=== PATIENT | male | born 1950 | race Caucasian/White ===

== ENCOUNTER 2016-06-03 13:05 | Outpatient (CLI) | payer OTHER ==
[~2016-06-03 13:05] MED LIST: HYDROCHLOROTHIA25 MG PO; HYDROCHLOROTHIA50 MG PO; VENTOLIN HFA IN; ZESTRIL5 MG PO
== END 2016-06-03 23:00 ==
LOC: RT SRH 13:05
DX: R06.02 Shortness of breath (principal); R91.8 Other nonspecific abnormal finding of lung field

== ENCOUNTER 2016-09-24 09:21 | Emergency (ER) | payer OTHER ==
--- NOTE | 2016-09-24 10:39 | DIAGNOSTIC IMAGING REPORT ---
PROCEDURE: XR HIP 2VW W W/O AP PELVIS-RT INDICATION: PAIN IN JOINT TECHNIQUE: AP view of the pelvis and hips with lateral view of the right hip. COMPARISON: None. FINDINGS: RIGHT HIP: Marginal spurring of the acetabulum and mild joint space narrowing. No fracture dislocation. PELVIS: No suspicious osseous lesion. Mild degenerative changes of the left hip joint. Soft tissues are unremarkable. IMPRESSION: 1. Moderate right and mild left hip degenerative changes
--- NOTE | 2016-09-24 10:48 | ED ORDER SUMMARY ---
..... Patient: ADELINA JEREZ OrderSheet [facility] VisitID: [id number] [address] [place] [address] 65y, M Registration Date/Time: 09/24/2016 ORDER SHEET Weight: 83.9 kg (stated) Allergies: Antidepressant, Iodine GENERAL ORDERS: Hip 2V Right w AP Pelvis Urgent (09:53 09/24/2016 Jesusita Diop) (Ack 9:55 Patricio) (10:44 Lashay R.N.) MEDICATION ORDERS: Toradol IM 60 mg (NOW) (09:53 09/24/2016 Jseusita Diop) (Ack 9:58 Ruthy Sullivan) (10:46 Lashay Keys.N.) IV FLUIDS: ORDER SHEET NOTES: [Electronically signed by Josiah Wells R.N. (13:13 09/24/2016)] [Electronically signed by Amish Mora Dr. (08:38 09/25/2016)] [Electronically locked/signed by Josiah Wells R.N. (13:13 09/24/2016)]
--- NOTE | 2016-09-24 10:48 | ED CLINICAL REPORT ---
Clinical Report - Physicians/Mid Levels [facility] [address] [place] [address] 09/24/2016 9:24 [id number] Time Seen: 09:44; initial patient contact. Arrived- By private vehicle. Historian- patient. HISTORY OF PRESENT ILLNESS Chief Complaint: RIGHT HIP INJURY. The injury occurred about 5 days ago. Occurred at home. Patient did not fall. (Pt states his hip occasionally "pops out". No fall.). The patient complains of moderate pain. No blow to the head or neck pain. REVIEW OF SYSTEMS No numbness, weakness, bladder dysfunction or back pain. He has had joint pain, and complains of pain on weight bearing. All systems otherwise negative, except as recorded above. PAST HISTORY Primary (Essential) Thrombocytosis. TIA - Transient Ischemic Attack. Hives. Alcohol Intoxication. Cellulitis. Hypertension. ADDITIONAL SURGERIES: Amputation. SOCIAL HISTORY Current every day smoker. Occasional alcohol use. No drug use. ADDITIONAL NOTES The nursing notes have been reviewed. PHYSICAL EXAM Vital Signs: 09/24/2016 09:32 BP: 154/104. HR: 87. RR: 20. O2 saturation: 99%. Temp: 98.0 F. Have been reviewed. Hypertensive. Heart rate normal. Respiratory rate normal. Temperature normal. Oxygen saturation normal. Appearance: Alert. Oriented X3. No acute distress. Head: No swelling of head. CVS: Heart sounds normal. Pulses normal. Respiratory: No respiratory distress. Breath sounds normal. Abdomen: Soft and nontender. Bowel sounds normal. No organomegaly. No mass. Back: No tenderness. ROM normal. Skin: Skin intact. Skin warm and dry. Extremities: Right hip: mild tenderness located in the anterior and lateral aspect of the hip. Limited ROM secondary to pain (diminished abduction and external and internal rotation). Neurovascular intact distally. No erythema. No decreased adduction, flexion or extension. The right leg is not shortened, externally rotated, internally rotated, flexed or adducted. The right leg is not abducted. Neuro: Oriented X 3. No motor deficit. No sensory deficit. LABS, X-RAYS, AND EKG Rt Hip X-ray: No fracture. Normal alignment. No bony lesion. Mild degenerative joint disease. Views: 2 view hip series. Technique: good. The X-rays were independently viewed by me and interpreted contemporaneously by me. Prior films were not available for comparison. Interpretation time: 10:48. PROGRESS AND PROCEDURES Course of Care: Toradol 60mg IM given. Physical exam findings are improved. Symptoms better. Disposition: Discharged home in good and improved condition. Condition: good. CLINICAL IMPRESSION Mild chronic primary osteoarthritis involving the right hip. INSTRUCTIONS Your Current Medications: CONTINUE TAKING THE FOLLOWING MEDICATIONS: Atorvastatin Calcium Oral : 80 mg. Hydrochlorothiazide Oral : 50 mg. Hydroxyurea 500mg x2 daily*. Lisinopril Oral : 20 mg daily. Ventolin HFA Inhalation : Aerosol Solution 108 (90 Base) mcg/act, 90MCG. Prescription Medications: Diclofenac 50 mg tablets: take 1 tablet orally every 8 hours as needed for pain or stiffness. Dispense thirty (30). No refill. Follow-up: Blood pressure screening was not performed during this visit because the patient has an active diagnosis of hypertension. Follow-up with: [facility], , [address], [facility], [address] Follow up in about two days. Call for an appointment. (Electronically signed by Amish Mora Dr. 09/25/2016 8:38)
--- NOTE | 2016-09-24 10:48 | ED NURSING NOTES ---
Clinical Report - Nurses [facility] [address] [place] [address] 09/24/2016 9:24 Patient: ADELINA JEREZ TRIAGE Triage time 09:32. Acuity: LEVEL 4. Chief Complaint: INJURY TO THE RIGHT HIP. Alert. No acute distress. ( I was just sleeping and my hip "popped out". Pt. states this has happened to him in the past a few times and it usually will resolve but it has been 5 days now and the pain is not going away.). SEPSIS SCREEN: Sepsis Screen. Negative (no infection suspected/documented). YAMILA COMA SCORE: Yamila Coma Scale: 15- eyes open spontaneously (4); best verbal response- oriented x 4 (5); best motor response- obeys commands (6). --09:38 Sienna Blanco R.N. 09:32 09/24/16. BP: 154/104. HR: 87. RR: 20. O2 saturation: 99%. Temp: 98.0 F. Pain level now 01/15. --09:38 Sienna Blanco R.N. Weight: 83.9 kg stated. Height/Length: 75 inches Per Patient. BMI: 23.1. --09:33 Sienna Blanco R.N. Medications Hydroxyurea 500mg x2 daily. --09:35 Sienna Blanco R.N. Ventolin HFA Inhalation (Aerosol Solution 108 (90 Base) mcg/act) 90MCG . --09:35 Sienna Blanco R.N. Lisinopril Oral 20 mg, daily. --09:36 Sienna Blanco R.N. Atorvastatin Calcium Oral 80 mg. --09:36 Sienna Blanco R.N. Hydrochlorothiazide Oral 50 mg. --09:36 Sienna Blanco R.N. Allergies Antidepressant.(hives) Iodine.(hives) --09:34 Sienna Blanco R.N. History Arrived by private vehicle. Historian: patient. Unaccompanied (pt dropped off by friend). Primary physician (Radha). This occurred (5 days ago). Treatment LENDING CONSULTANT: None. PAST MEDICAL HX: Immunizations: up-to-date. SOCIAL HX: Light tobacco smoker (cigarette)- less than 1/2 a pack per day. Occasional alcohol use. ("whenever I feel like it."). ABUSE ASSESSMENT: No report of abuse. NUTRITIONAL RISK ASSESSMENT: The nutritional risk assessment revealed no deficiencies. FUNCTIONAL ASSESSMENT: Functional assessment: no impairments noted. LEARNING NEEDS ASSESSMENT: The learning needs assessment revealed no barriers. --09:38 Sienna Blanco R.N. PROBLEMS: Primary (Essential) Thrombocytosis. TIA - Transient Ischemic Attack. Hives. Alcohol Intoxication. Cellulitis. Hypertension. --09:36 Sienna Blanco R.N. The following entry was modified by Sienna Blanco R.N., 09:42 Reason - other <<STRICKEN ENTRY-- DVT - Deep Venous Thrombosis. --09:36 Sienna Blanco R.N. --END STRIKE>>. ADDITIONAL SURGERIES: Amputation. --09:37 Sienna Blanco R.N. Interventions ID band on patient. Transported via wheelchair. --09:38 Sienna Blanco R.N. PHYSICAL ASSESSMENT To room via wheelchair. GENERAL / NEURO / PSYCH: Alert. Appears in no acute distress. EXTREMITIES: Pain with weight bearing. SKIN: Skin is warm and dry. --09:38 Sienna Blanco R.N. NURSING PROGRESS NOTES gambling monitor, pulse oximeter and NIBP monitor placed on patient; cardiac monitor technician- Lead II; monitor alarms on. Two patient identifiers checked. Call light placed in reach. Side rails up x 2. Bed placed in lowest position. Brakes of bed on. Patient ready for evaluation- chart flagged. --09:39 Sienna Blanco R.N. Patient transported to radiology by stretcher with tech. --10:06 Josiah Wells R.N. 10:46 09/24/2016 Toradol (Ketorolac Tromethamine) IM 60 mg given. Given in the left gluteus augusta. Allergies verified and confirmed 5 rights. --10:46 Sienna Blanco R.N. 11:00 09/24/2016 Toradol IM Response: no adverse reaction. --13:13 Josiah Wells R.N. DISPOSITION / DISCHARGE 11:00. Departure time: 1100. Condition at departure: stable. The goals identified in the patient's plan of care were met. No learning barriers present. Discharge instructions provided and reviewed with the patient. Reviewed medication(s) side effects, precautions, dosing and course information. Prescription(s) given to the patient. Patient verbalized understanding. Written instructions provided in Bots[place]. The patient was discharged by the physician. He was discharged home and accompanied by family. He left the Emergency Department in a wheelchair and via private vehicle. Family member driving. YAMILA COMA SCORE: Yamila Coma Scale: 15- eyes open spontaneously (4); best verbal response- oriented x 4 (5); best motor response- obeys commands (6). --13:13 Josiah Wells R.N. 11:00 09/24/16. BP: 155/81 (regular adult cuff) taken on the left arm, via an automated monitor, while lying. HR: 86 (normal rate). RR: 16 (regular, unlabored and normal). O2 saturation: 100% on room air. Temp: 97.9 F (oral). Pain level now: 11/14. --13:13 Josiah Wells R.N. Locked/Released at 09/24/2016 13:13 by Josiah Wells R.N.
--- NOTE | 2016-09-24 10:48 | ED ORDER SUMMARY ---
..... Patient: ADELINA JEREZ OrderSheet [facility] VisitID: [id number] [address] [place] [address] 65y, M Registration Date/Time: 09/24/2016 ORDER SHEET Weight: 83.9 kg (stated) Allergies: Antidepressant, Iodine GENERAL ORDERS: Hip 2V Right w AP Pelvis Urgent (09:53 09/24/2016 Jesusita Diop) (Ack 9:55 Patricio) (10:44 Lashay R.N.) MEDICATION ORDERS: Toradol IM 60 mg (NOW) (09:53 09/24/2016 Jesusita Diop) (Ack 9:58 Ruthy Sullivan) (10:46 Lashay Keys.N.) IV FLUIDS: ORDER SHEET NOTES: [Electronically signed by Josiah Wells R.N. (13:13 09/24/2016)] [Electronically signed by Amish Mora Dr. (08:38 09/25/2016)] [Electronically locked/signed by Josiah Wells R.N. (13:13 09/24/2016)]
--- NOTE | 2016-09-24 10:48 | ED CLINICAL REPORT ---
Clinical Report - Physicians/Mid Levels [facility] [address] [place] [address] 09/24/2016 9:24 [id number] Time Seen: 09:44; initial patient contact. Arrived- By private vehicle. Historian- patient. HISTORY OF PRESENT ILLNESS Chief Complaint: RIGHT HIP INJURY. The injury occurred about 5 days ago. Occurred at home. Patient did not fall. (Pt states his hip occasionally "pops out". No fall.). The patient complains of moderate pain. No blow to the head or neck pain. REVIEW OF SYSTEMS No numbness, weakness, bladder dysfunction or back pain. He has had joint pain, and complains of pain on weight bearing. All systems otherwise negative, except as recorded above. PAST HISTORY Primary (Essential) Thrombocytosis. TIA - Transient Ischemic Attack. Hives. Alcohol Intoxication. Cellulitis. Hypertension. ADDITIONAL SURGERIES: Amputation. SOCIAL HISTORY Current every day smoker. Occasional alcohol use. No drug use. ADDITIONAL NOTES The nursing notes have been reviewed. PHYSICAL EXAM Vital Signs: 09/24/2016 09:32 BP: 154/104. HR: 87. RR: 20. O2 saturation: 99%. Temp: 98.0 F. Have been reviewed. Hypertensive. Heart rate normal. Respiratory rate normal. Temperature normal. Oxygen saturation normal. Appearance: Alert. Oriented X3. No acute distress. Head: No swelling of head. CVS: Heart sounds normal. Pulses normal. Respiratory: No respiratory distress. Breath sounds normal. Abdomen: Soft and nontender. Bowel sounds normal. No organomegaly. No mass. Back: No tenderness. ROM normal. Skin: Skin intact. Skin warm and dry. Extremities: Right hip: mild tenderness located in the anterior and lateral aspect of the hip. Limited ROM secondary to pain (diminished abduction and external and internal rotation). Neurovascular intact distally. No erythema. No decreased adduction, flexion or extension. The right leg is not shortened, externally rotated, internally rotated, flexed or adducted. The right leg is not abducted. Neuro: Oriented X 3. No motor deficit. No sensory deficit. LABS, X-RAYS, AND EKG Rt Hip X-ray: No fracture. Normal alignment. No bony lesion. Mild degenerative joint disease. Views: 2 view hip series. Technique: good. The X-rays were independently viewed by me and interpreted contemporaneously by me. Prior films were not available for comparison. Interpretation time: 10:48. PROGRESS AND PROCEDURES Course of Care: Toradol 60mg IM given. Physical exam findings are improved. Symptoms better. Disposition: Discharged home in good and improved condition. Condition: good. CLINICAL IMPRESSION Mild chronic primary osteoarthritis involving the right hip. INSTRUCTIONS Your Current Medications: CONTINUE TAKING THE FOLLOWING MEDICATIONS: Atorvastatin Calcium Oral : 80 mg. Hydrochlorothiazide Oral : 50 mg. Hydroxyurea 500mg x2 daily*. Lisinopril Oral : 20 mg daily. Ventolin HFA Inhalation : Aerosol Solution 108 (90 Base) mcg/act, 90MCG. Prescription Medications: Diclofenac 50 mg tablets: take 1 tablet orally every 8 hours as needed for pain or stiffness. Dispense thirty (30). No refill. Follow-up: Blood pressure screening was not performed during this visit because the patient has an active diagnosis of hypertension. Follow-up with: [facility], , [address], [facility], [address] Follow up in about two days. Call for an appointment. (Electronically signed by Amish Mora Dr. 09/25/2016 8:38)
--- NOTE | 2016-09-24 10:48 | ED NURSING NOTES ---
Clinical Report - Nurses [facility] [address] [place] [address] 09/24/2016 9:24 Patient: ADELINA JEREZ TRIAGE Triage time 09:32. Acuity: LEVEL 4. Chief Complaint: INJURY TO THE RIGHT HIP. Alert. No acute distress. ( I was just sleeping and my hip "popped out". Pt. states this has happened to him in the past a few times and it usually will resolve but it has been 5 days now and the pain is not going away.). SEPSIS SCREEN: Sepsis Screen. Negative (no infection suspected/documented). YAMILA COMA SCORE: Yamila Coma Scale: 15- eyes open spontaneously (4); best verbal response- oriented x 4 (5); best motor response- obeys commands (6). --09:38 Sienna Blanco R.N. 09:32 09/24/16. BP: 154/104. HR: 87. RR: 20. O2 saturation: 99%. Temp: 98.0 F. Pain level now 01/15. --09:38 Sienna Blanco R.N. Weight: 83.9 kg stated. Height/Length: 75 inches Per Patient. BMI: 23.1. --09:33 Sienna Blanco R.N. Medications Hydroxyurea 500mg x2 daily. --09:35 Sienna Blanco R.N. Ventolin HFA Inhalation (Aerosol Solution 108 (90 Base) mcg/act) 90MCG . --09:35 Sienna Blanco R.N. Lisinopril Oral 20 mg, daily. --09:36 Sienna Blanco R.N. Atorvastatin Calcium Oral 80 mg. --09:36 Sienna Blanco R.N. Hydrochlorothiazide Oral 50 mg. --09:36 Sienna Blanco R.N. Allergies Antidepressant.(hives) Iodine.(hives) --09:34 Sienna Blanco R.N. History Arrived by private vehicle. Historian: patient. Unaccompanied (pt dropped off by friend). Primary physician (Radha). This occurred (5 days ago). Treatment CABINET AND TRIM INSTALLER: None. PAST MEDICAL HX: Immunizations: up-to-date. SOCIAL HX: Light tobacco smoker (cigarette)- less than 1/2 a pack per day. Occasional alcohol use. ("whenever I feel like it."). ABUSE ASSESSMENT: No report of abuse. NUTRITIONAL RISK ASSESSMENT: The nutritional risk assessment revealed no deficiencies. FUNCTIONAL ASSESSMENT: Functional assessment: no impairments noted. LEARNING NEEDS ASSESSMENT: The learning needs assessment revealed no barriers. --09:38 Sienna Blanco R.N. PROBLEMS: Primary (Essential) Thrombocytosis. TIA - Transient Ischemic Attack. Hives. Alcohol Intoxication. Cellulitis. Hypertension. --09:36 Sienna Blanco R.N. The following entry was modified by Sienna Blanco R.N., 09:42 Reason - other <<STRICKEN ENTRY-- DVT - Deep Venous Thrombosis. --09:36 Sienna Blanco R.N. --END STRIKE>>. ADDITIONAL SURGERIES: Amputation. --09:37 Sienna Blanco R.N. Interventions ID band on patient. Transported via wheelchair. --09:38 Sienna Blanco R.N. PHYSICAL ASSESSMENT To room via wheelchair. GENERAL / NEURO / PSYCH: Alert. Appears in no acute distress. EXTREMITIES: Pain with weight bearing. SKIN: Skin is warm and dry. --09:38 Sienna Blanco R.N. NURSING PROGRESS NOTES cardiac monitor technician, pulse oximeter and NIBP monitor placed on patient; playground monitor- Lead II; monitor alarms on. Two patient identifiers checked. Call light placed in reach. Side rails up x 2. Bed placed in lowest position. Brakes of bed on. Patient ready for evaluation- chart flagged. --09:39 Sienna Blanco R.N. Patient transported to radiology by stretcher with tech. --10:06 Josiah Wells R.N. 10:46 09/24/2016 Toradol (Ketorolac Tromethamine) IM 60 mg given. Given in the left gluteus augusta. Allergies verified and confirmed 5 rights. --10:46 Sienna Blanco R.N. 11:00 09/24/2016 Toradol IM Response: no adverse reaction. --13:13 Josiah eWlls R.N. DISPOSITION / DISCHARGE 11:00. Departure time: 1100. Condition at departure: stable. The goals identified in the patient's plan of care were met. No learning barriers present. Discharge instructions provided and reviewed with the patient. Reviewed medication(s) side effects, precautions, dosing and course information. Prescription(s) given to the patient. Patient verbalized understanding. Written instructions provided in [place]ian. The patient was discharged by the physician. He was discharged home and accompanied by family. He left the Emergency Department in a wheelchair and via private vehicle. Family member driving. YAMILA COMA SCORE: Yamila Coma Scale: 15- eyes open spontaneously (4); best verbal response- oriented x 4 (5); best motor response- obeys commands (6). --13:13 Josiah Wells R.N. 11:00 09/24/16. BP: 155/81 (regular adult cuff) taken on the left arm, via an automated monitor, while lying. HR: 86 (normal rate). RR: 16 (regular, unlabored and normal). O2 saturation: 100% on room air. Temp: 97.9 F (oral). Pain level now: 11/14. --13:13 Josiah Wells R.N. Locked/Released at 09/24/2016 13:13 by Josiah Wells R.N.
--- NOTE | 2016-09-25 08:39 | ED MED RECONCILIATION SUMMARY ---
Patient: ADELINA JEREZ Medication Reconciliation Report [facility] VisitID: [id number] [address] [place] [address] 65y, M Registration Date/Time: 09/24/2016 Weight: 83.9 kg Height/Length: 75 in. BMI: 23.1 ALLERGIES: Antidepressant, Iodine The patient's Home Medications are listed below: CONTINUE TAKING THE FOLLOWING MEDICATIONS: Atorvastatin Calcium Oral 80 mg Hydrochlorothiazide Oral 50 mg Hydroxyurea 500mg x2 daily Lisinopril Oral 20 mg, daily Ventolin HFA Inhalation (108 (90 Base) mcg/act) 90MCG The source(s) of the original Home Medication information: Not obtained. The following Medications were given to the patient in the Emergency Department: Toradol [IM] IM 60 mg, administered: 09/24/2016 10:46:00 AM The following Medications were prescribed to the patient: Diclofenac 50 mg tablets: take 1 tablet orally every 8 hours as needed for pain or stiffness. Dispense thirty (30). No refill. -- Amish Mora Dr.
--- NOTE | 2016-09-25 08:39 | ED DISCHARGE INSTRUCTIONS ---
Patient: ADELINA JEREZ General Instructions [facility] VisitID: [id number] [address] [place] [place] [address] 65y, M Registration Date/Time: 09/24/2016 Mild chronic primary osteoarthritis involving the right hip. INSTRUCTIONS Your Current Medications: CONTINUE TAKING THE FOLLOWING MEDICATIONS: Atorvastatin Calcium Oral : 80 mg. Hydrochlorothiazide Oral : 50 mg. Hydroxyurea 500mg x2 daily*. Lisinopril Oral : 20 mg daily. Ventolin HFA Inhalation : Aerosol Solution 108 (90 Base) mcg/act, 90MCG. Prescription Medications: Diclofenac 50 mg tablets: take 1 tablet orally every 8 hours as needed for pain or stiffness. Dispense thirty (30). No refill. Follow-up: Blood pressure screening was not performed during this visit because the patient has an active diagnosis of hypertension. Follow-up with: [facility], , [address], [place], [address] Follow up in about two days. Call for an appointment. ADDITIONAL INFORMATION Osteoarthritis Osteoarthritis (also called Degenerative Joint Disease) is the most common form of arthritis in adults over 50. It is not the same as Rheumatoid Arthritis. The exact cause is not known but may be related to excess wear and tear on the joint over a long period of time. Prior injury to that joint, or repeated stress on a joint can also cause this type of arthritis. Osteoarthritis most often affects the hands, knees, spine and hips (in that order). The most common symptoms are joint stiffness, pain and swelling. Home Care: When a joint is more sore than usual, rest that joint for a day or two. Heat is very helpful. This can be provided by taking hot baths, applying a heating pad for up to 30 minutes at a time. Because symptoms are usually worse in the morning, many patients like to take a hot bath just after awakening to relax the muscle and soothe the joints. Exercise is the most important part of home treatment for osteoarthritis. This prevents the muscles and ligaments around the joint from becoming weak and helps maintain the full range of joint motion. This limits further damage to the joint. If you are overweight, this puts a lot of extra strain on weight-bearing joints of the lower back, hips, knees, feet and ankles. Losing weight will improve your arthritis symptoms in these joints. Talk to your doctor about a safe and effective weight loss program for yourself. Anti-inflammatory medicine such as ibuprofen (Advil, Motrin) or naproxen (Aleve) is often used to treat this condition. If this alone is not helping, your doctor may prescribe a stronger medicine. If narcotic pain medicines have been prescribed, they should be used in addition to anti-inflammatory drugs and only for severe pain. Follow Up with your doctor as advised by our staff. Get Prompt Medical Attention if any of the following occur: Redness or swelling of a painful joint Fever of 100.4F (38C) or higher, or as directed by your healthcare provider Worsening joint pain You have been given the following additional information: Osteoarthritis (Electronically signed by Amish Mora Dr. 09/25/2016 8:38)
--- NOTE | 2016-09-25 08:39 | ED MED RECONCILIATION SUMMARY ---
Patient: ADELINA JEREZ Medication Reconciliation Report [facility] VisitID: [id number] [address] [place] [address] 65y, M Registration Date/Time: 09/24/2016 Weight: 83.9 kg Height/Length: 75 in. BMI: 23.1 ALLERGIES: Antidepressant, Iodine The patient's Home Medications are listed below: CONTINUE TAKING THE FOLLOWING MEDICATIONS: Atorvastatin Calcium Oral 80 mg Hydrochlorothiazide Oral 50 mg Hydroxyurea 500mg x2 daily Lisinopril Oral 20 mg, daily Ventolin HFA Inhalation (108 (90 Base) mcg/act) 90MCG The source(s) of the original Home Medication information: Not obtained. The following Medications were given to the patient in the Emergency Department: Toradol [IM] IM 60 mg, administered: 09/24/2016 10:46:00 AM The following Medications were prescribed to the patient: Diclofenac 50 mg tablets: take 1 tablet orally every 8 hours as needed for pain or stiffness. Dispense thirty (30). No refill. -- Amish Mora Dr.
--- NOTE | 2016-09-25 08:39 | ED MAR SUMMARY ---
..... Medication Administration Record [facility] [address] [place] [address] Patient: ADELINA JEREZ Visit ID: [id number] 65y, M Weight: 83.9 kg Height/Length: 75 in BMI: 23.1 ALLERGIES: Antidepressant, Iodine Given 10:46 09/24/2016 Sienna Blanco R.N. Medication Administered: TORADOL [IM] (KETOROLAC TROMETHAMINE), Dose: 60 mg IM. Medication Ordered: Toradol IM 60 mg (NOW).
--- NOTE | 2016-09-25 08:39 | ED DISCHARGE INSTRUCTIONS ---
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 INSTRUCTIONS Your Current Medications: CONTINUE TAKING THE FOLLOWING MEDICATIONS: Atorvastatin Calcium Oral : 80 mg. Hydrochlorothiazide Oral : 50 mg. Hydroxyurea 500mg x2 daily*. Lisinopril Oral : 20 mg daily. Ventolin HFA Inhalation : Aerosol Solution 108 (90 Base) mcg/act, 90MCG. Prescription Medications: Diclofenac 50 mg tablets: take 1 tablet orally every 8 hours as needed for pain or stiffness. Dispense thirty (30). No refill. Follow-up: Blood pressure screening was not performed during this visit because the patient has an active diagnosis of hypertension. Follow-up with: [facility], , [address], [place], [address] Follow up in about two days. Call for an appointment. ADDITIONAL INFORMATION Osteoarthritis Osteoarthritis (also called Degenerative Joint Disease) is the most common form of arthritis in adults over 50. It is not the same as Rheumatoid Arthritis. The exact cause is not known but may be related to excess wear and tear on the joint over a long period of time. Prior injury to that joint, or repeated stress on a joint can also cause this type of arthritis. Osteoarthritis most often affects the hands, knees, spine and hips (in that order). The most common symptoms are joint stiffness, pain and swelling. Home Care: When a joint is more sore than usual, rest that joint for a day or two. Heat is very helpful. This can be provided by taking hot baths, applying a heating pad for up to 30 minutes at a time. Because symptoms are usually worse in the morning, many patients like to take a hot bath just after awakening to relax the muscle and soothe the joints. Exercise is the most important part of home treatment for osteoarthritis. This prevents the muscles and ligaments around the joint from becoming weak and helps maintain the full range of joint motion. This limits further damage to the joint. If you are overweight, this puts a lot of extra strain on weight-bearing joints of the lower back, hips, knees, feet and ankles. Losing weight will improve your arthritis symptoms in these joints. Talk to your doctor about a safe and effective weight loss program for yourself. Anti-inflammatory medicine such as ibuprofen (Advil, Motrin) or naproxen (Aleve) is often used to treat this condition. If this alone is not helping, your doctor may prescribe a stronger medicine. If narcotic pain medicines have been prescribed, they should be used in addition to anti-inflammatory drugs and only for severe pain. Follow Up with your doctor as advised by our staff. Get Prompt Medical Attention if any of the following occur: Redness or swelling of a painful joint Fever of 100.4F (38C) or higher, or as directed by your healthcare provider Worsening joint pain You have been given the following additional information: Osteoarthritis (Electronically signed by Amish Mora Dr. 09/25/2016 8:38)
--- NOTE | 2016-09-25 08:39 | ED MAR SUMMARY ---
..... Medication Administration Record [facility] [address] [place] [address] Patient: ADELINA JEREZ Visit ID: [id number] 65y, M Weight: 83.9 kg Height/Length: 75 in BMI: 23.1 ALLERGIES: Antidepressant, Iodine Given 10:46 09/24/2016 Sienna Blanco R.N. Medication Administered: TORADOL [IM] (KETOROLAC TROMETHAMINE), Dose: 60 mg IM. Medication Ordered: Toradol IM 60 mg (NOW).
== END 2016-09-24 11:00 | disposition home or self-care (01) ==
LOC: ED SRH 09:21
DX: S79.911A Unspecified injury of right hip, initial encounter (principal); Z79.899 Other long term (current) drug therapy; M16.11 Unilateral primary osteoarthritis, right hip; G89.29 Other chronic pain; X58.XXXA Exposure to other specified factors, initial encounter; Y93.9 Activity, unspecified; Y92.009 Unspecified place in unspecified non-institutional (private) residence as the place of occurrence of the external cause; Y99.9 Unspecified external cause status; F17.210 Nicotine dependence, cigarettes, uncomplicated; I10 Essential (primary) hypertension

== ENCOUNTER 2016-10-07 02:21 | Emergency (ER) | payer OTHER ==
--- NOTE | 2016-10-07 04:55 | ED ORDER SUMMARY ---
..... Patient: ADELINA JEREZ OrderSheet [facility] VisitID: [id number] [place] [address] 65y, M Registration Date/Time: 10/07/2016 ORDER SHEET Weight: 90.7 kg (stated) Allergies: Antidepressant, Iodine GENERAL ORDERS: Chest 1V Urgent (02:10/07/2016 Chrissy RODRIGUEZ) (Ack 2:34 LMuller) (2:47 [employer] ER Compensation Advisor) At Home Independent Call Center Agent (Continuous) (:10/07/2016 Chrissy RODRIGUEZ) (2:37 DDavis R.N.) Cardiac Panel Stat (:10/07/2016 Chrissy RODRIGUEZ) (Ack 2:34 LMuller) (2:37 DDavis R.N.) Oxygen (2 L/min) (NC) (:10/07/2016 Chrissy RODRIGUEZ) (2:37 DDavis R.N.) Pulse oximeter (02:10/07/2016 Chrissy RODRIGUEZ) (2:37 DDavis R.N.) EKG - ER Stat (:10/07/2016 Chrissy RODRIGUEZ) (Ack 2:34 LMuller) (2:47 [employer] ER Compensation Advisor) MEDICATION ORDERS: Aspirin PO 325 mg (Do not crush or chew, NOW) (02:10/07/2016 Chrissy RODRIGUEZ) (Ack 2:57 JSanders R.N.) (3:01 JSanders R.N.) IV FLUIDS: IV NS : initial bolus 1000 mL (1000 mL/hr), then none - (NOW) (02:10/07/2016 Chrissy RODRIGUEZ) (Ack 2:57 JSanders R.N.) (3:07 JSanders R.N.) Ativan IV 0.5 mg (HIGH ALERT MEDICATION, NOW) (02:10/07/2016 Chrissy RODRIGUEZ) (Ack 2:57 JSanders R.N.) (3:07 JSanders R.N.) Toradol IV 30 mg (NOW) (02:10/07/2016 Chrissy RODRIGUEZ) (Ack 2:57 JSanders R.N.) (3:09 JSanders R.N.) ORDER SHEET NOTES: [Electronically signed by Shabana Ziegler R.N. (06:48 10/17/2016)] [Electronically signed by Malia Robertson MD (12:25 10/20/2016)] [Electronically locked/signed by Shabana Ziegler R.N. (06:48 10/17/2016)]
--- NOTE | 2016-10-07 04:55 | ED CLINICAL REPORT ---
Clinical Report - Physicians/Mid Levels [facility] [address] [place] [address] 10/07/2016 2:23 Patient: ADELINA JEREZ Time Seen: 02:29. Arrived- By ambulance. Historian- patient and EMS personnel. HISTORY OF PRESENT ILLNESS Chief Complaint: DYSPNEA and HISTORY OF CHRONIC OBSTRUCTIVE PULMONARY DISEASE. This started today and is still present. The dyspnea is described as moderate and is worsened by walking and exertion, is improved by rest, is improved with oxygen and is improved with sitting upright. The patient has had a mild dry cough (chronically). No change in baseline cough. No sputum production, fever, sweating episodes, wheezing or chills. No dyspnea on exertion, chest pain or discomfort, calf pain or foot swelling. No orthopnea, paroxysmal nocturnal dyspnea, anxiety, dizziness or tingling. No numbness or palpitations. (Pt states his COPD has been "acting up". He was at the [facility], where there was a lot of cigarette smoke, and the dyspnea got worse, as did a headache that the pt has had on and off for the past couple of days. Pt states the headache is better now, though the dyspnea has persisted.). Similar symptoms previously: Many times. Recent medical care: Not recently seen/assessed. REVIEW OF SYSTEMS The patient has had a headache but not had weight loss. No muscle aches, eye irritation, sore throat, nasal discharge or sinus drainage. No nausea, vomiting, abdominal pain, diarrhea or black stools. No bloody stools, fainting episodes, blurred vision, difficulty with urination or skin rash. No enlarged lymph nodes or joint pain. All systems otherwise negative, except as recorded above. PAST HISTORY Problems: Hypercholesterolemia. Degenerative Joint Disease. Primary (Essential) Thrombocytosis. TIA - Transient Ischemic Attack. Hives. Alcohol Intoxication. Hypertension. Additional Surgeries: Amputation. Medications: Atorvastatin Calcium Oral 80 mg. Hydrochlorothiazide Oral 50 mg. Hydroxyurea 500mg x2 daily. Lisinopril Oral 20 mg, daily. Ventolin HFA Inhalation (Aerosol Solution 108 (90 Base) mcg/act) 90MCG . Allergies: Antidepressant.(hives) Iodine.(hives). SOCIAL HISTORY Smoker- current status unknown. Occasional alcohol use. History of drug use: marijuana. ADDITIONAL NOTES The nursing notes have been reviewed. PHYSICAL EXAM Vital Signs: 10/07/2016 02:26 BP: 112/52. HR: 104. RR: 16. O2 saturation: 100%. Temp: 97.8 F. Pain level now: 0/10. Have been reviewed. Appearance: Alert. Patient in mild distress. Distress appears due to anxiety. Eyes: Pupils equal, round and reactive to light. Eyes normal inspection. ENT: Nose normal. Neck: Normal inspection. Neck supple. CVS: Normal heart rate and rhythm. Heart sounds normal. Pulses normal. Respiratory: No respiratory distress. Breath sounds normal. Abdomen: Soft and nontender. Back: Normal inspection. No CVA tenderness. Skin: Skin warm and dry. Normal skin color. No rash. Normal skin turgor. Extremities: Extremities exhibit normal ROM. No lower extremity edema. Neuro: No motor deficit. No sensory deficit. (Grossly oriented.). LABS, X-RAYS, AND EKG EKG: EKG time: (0246). No acute ischemia. Rate: 99. Normal QRS complex. Normal axis. Normal ST and T waves. Prolonged QT. Prior EKG unavailable. The study has been interpreted contemporaneously by me. The study has been independently viewed by me. The EKG appears to be a good tracing. Rhythm Strip #1: Time: (0241). Rate= 98. Normal sinus rhythm. Regular rhythm. Narrow QRS complexes. No ectopy. Conduction normal. Normal ST segments and T waves. The study was interpreted by me. Chest X-ray: No acute disease. Normal lung markings present. Normal heart size. Mediastinum normal. Great vessels normal. Soft tissues normal. No infiltrate. No fracture. No bony lesion present. Views: AP (portable). Technique: good. The X-rays were independently viewed by me and interpreted contemporaneously by me. Prior films were not available for comparison. Laboratory Tests: CBC w Diff: (SADIA: 10/07/2016 02:40) ( MsgRcvd 10/07/2016 02:58) Final results Test Result Flag Units (Reference) WHITE BLOOD COUNT 12.8 H K/uL (4.5-11.5) RED BLOOD COUNT 4.03 L M/uL (4.50-5.90) HEMOGLOBIN 15.1 gm/dL (13.5-17.5) HEMATOCRIT 44.6 % (41.0-53.0) MEAN CELL VOLUME 111 H fL (80-100) MEAN CORPUSCULAR HGB 38 H pg (26-34) MEAN CORPUSCULAR HGB CONC 34 g/dL (31-37) RED CELL DISTRIBUTION WIDTH 14.1 % (11.6-14.8) PLATELET COUNT 267 K/uL (150-400) NEUTROPHIL % 78.0 H % (50-75) LYMPH % 14.3 L % (25-40) MONO % 7.2 % (3-14) EOSINOPHIL % 0.2 % (0-4) BASOPHIL % 0.3 % (0-2) CHEM 13 PANEL: (SADIA: 10/07/2016 02:40) ( MsgRcvd 10/07/2016 03:13) Final results Test Result Flag Units (Reference) GLUCOSE 204 H mg/dL (70-110) BUN 32 H mg/dL (7-18) CREATININE 1.9 H mg/dL (0.6-1.3) Estimated GFR 38.12 mL/min Estimated GFR- 46.20 mL/min Note: Persistent reduction over 3 months in eGFR<60 mL/min/1.73 m2 defines CKD. Patients with eGFR values>=60 mL/min/1.73 m2 may also have CKD if evidence ofpersistent proteinuria. Additional information may be foundat www.kidney.org. SODIUM 143 mmol/L (136-145) POTASSIUM 3.4 L mmol/L (3.5-5.1) CHLORIDE 104 mmol/L (98-107) CARBON DIOXIDE 24 mmol/L (21-32) CALCIUM 9.0 mg/dL (8.5-10.1) TOTAL PROTEIN 7.5 g/dL (6.4-8.2) ALBUMIN 3.5 g/dL (3.3-5.0) BILIRUBIN, TOTAL 0.7 mg/dL (0.0-1.0) ALKALINE PHOSPHATASE 87 U/L (46-116) AST (SGOT) 26 U/L (15-37) ALT (SGPT) 34 U/L (12-78) MAGNESIUM 1.9 mg/dL (1.8-2.4) CPK 104 U/L (24-260) TROPONIN I <0.05 ng/mL (0.00-1.5) TROPONIN REFERENCE RANGE:<0.1 NEGATIVE0.1-1.5 INDETERMINANT>1.5 POSITIVE . Pulse Oximetry: 10/07/2016 02:26 O2 saturation: 100%. (FIO2 - room air). Interpretation: normal. PROGRESS AND PROCEDURES Course of Care: The pt appeared anxious, but did not have findings of a COPD exacerbation. He was worked up with a cardiac panel, and was given Ativan for his anxiety, as well as Toradol for DAMICO. He was also given an ASA. Pt's work-up was negative. His HR normalized, and sx completely resolved. No emergent condition was identified. Patient counseled in person regarding the patient's stable condition, test results, diagnosis and need for follow-up. Concerns were addressed. Old medical records reviewed. Disposition: Discharged. Condition: stable and improved. CLINICAL IMPRESSION Acute exacerbation of COPD. Anxiety reaction. INSTRUCTIONS (Your labs, EKG and x-ray look good.). Warnings: SEDATIVE MEDICATION: You were given sedative medication during your visit. Do not drive or operate dangerous machinery for 6 hours. GENERAL WARNINGS: Return or contact your physician immediately if your condition worsens or changes unexpectedly, if not improving as expected, or if other problems arise. Your Current Medications: CONTINUE TAKING THE FOLLOWING MEDICATIONS: Atorvastatin Calcium Oral : 80 mg. Hydrochlorothiazide Oral : 50 mg. Hydroxyurea 500mg x2 daily*. Lisinopril Oral : 20 mg daily. Ventolin HFA Inhalation : Aerosol Solution 108 (90 Base) mcg/act, 90MCG. Follow-up: Follow up with your doctor as needed. Call for an appointment. Understanding of the discharge instructions verbalized by patient. (Electronically signed by Malia Robertson MD 10/20/2016 12:25)
--- NOTE | 2016-10-07 04:55 | ED NURSING NOTES ---
Clinical Report - Nurses [facility] [address] [place] [address] 10/07/2016 2:23 [id number] Triage time 02:28. Acuity: LEVEL 2. Chief Complaint: HEADACHE. Alert. HUDSON COMA SCORE: [place] Coma Scale: 15- eyes open spontaneously (4); best verbal response- oriented x 4 (5); best motor response- obeys commands (6). --02:33 Krystian Bello R.N. 02:26 10/07/16. BP: 112/52 taken on the right arm, while lying. HR: 104 (regular and tachycardic). RR: 16 (regular and unlabored). O2 saturation: 100%. Temp: 97.8 F (oral). Pain level now: 0/10. Additional comments: Sinus tach on monitor. --02:33 Krystian Bello R.N. Weight: 90.7 kg stated. Height/Length: 77 inches Per Patient. BMI: 23.7. --02:28 Krystian Bello R.N. Medications Atorvastatin Calcium Oral 80 mg. Hydrochlorothiazide Oral 50 mg. Hydroxyurea 500mg x2 daily. Lisinopril Oral 20 mg, daily. Ventolin HFA Inhalation (Aerosol Solution 108 (90 Base) mcg/act) 90MCG . --02:30 Krystian Bello R.N. Allergies Antidepressant.(hives) Iodine.(hives) --02:29 Krystian Bello R.N. History Arrived by EMS. Historian: patient. Unaccompanied. ( with shortness of breath). SOCIAL HX: Heavy tobacco smoker (cigarette)- less than 1 pack per day. Occasional alcohol use. History of occasional drug use: marijuana. NUTRITIONAL RISK ASSESSMENT: The nutritional risk assessment revealed no deficiencies. FUNCTIONAL ASSESSMENT: Functional assessment: no impairments noted. LEARNING NEEDS ASSESSMENT: The learning needs assessment revealed no barriers. FALL RISK ASSESSMENT: Fall risk assessment completed. Risk factors identified include patient history of fall. --02:33 Ace, Krystian, R.N. PROBLEMS: Degenerative Joint Disease. Primary (Essential) Thrombocytosis. TIA - Transient Ischemic Attack. Hives. Alcohol Intoxication. Cellulitis. Hypertension. --02:29 Krystian Bello R.N. Hypercholesterolemia. --02:30 Krystian Bello R.N. ADDITIONAL SURGERIES: Amputation. --02:30 Krystian Bello R.N. Interventions ID band on patient. To treatment room. --02:33 Krystian Bello R.N. PHYSICAL ASSESSMENT To room via stretcher. ( Pt states that he has had a headache for 2 days, and that [place] and he began to get dizzy. he states that his headache is gone now.). GENERAL / NEURO / PSYCH: Alert. Oriented X 4. Appears in pain and anxious. Speech within normal limits. HEENT: No facial asymmetry noted. RESPIRATORY: Respirations not labored. Abnormal breath sounds in the bases bilaterally. ( pt states having shortness of breath, speaks in full sentences, breathing deeply at a WNL rate). CVS: Capillary refill less than 2 seconds. SKIN: Skin is warm. Skin is slightly diaphoretic. --02:35 Krystian Bello R.N. HEENT: No facial asymmetry noted. --02:36 Krystian Bello R.N. SKIN: Skin rash. ( sales architect and foot strength equal bilaterally). --02:36 Krystian Bello R.N. NURSING PROGRESS NOTES Oxygen administered. separator tender, pulse oximeter and NIBP monitor placed on patient. Patient gowned. Head of bed elevated. Two patient identifiers checked. Call light placed in reach. Side rails up x 1. Bed placed in lowest position. Brakes of bed on. Patient ready for evaluation- chart flagged. Patient waiting for evaluation. --02:36 Krystian Bello R.N. EKG time: (0246). EKG was ordered, performed by a tech and shown to the ED physician. --02:48 Giovanny Antoine ER Access Developer 02:42 10/07/2016 Site #1 started prior to arrival by EMS via IV in the left antecubital space with an 18g angiocath. Blood drawn: rainbow set. Labeled in the presence of the patient and sent to the lab. --03:07 Sallie Garza R.N. 03:01 10/07/2016 Aspirin PO Tablets 325 mg given. Allergies verified and confirmed 5 rights. --03:01 Sallie Garza R.N. 03:10/07/2016 Started bag #1 1000 mL IV Fluids IV NS (Saline); bolus of 1000 mL over 1 hour(s) via site #1 via IV pump. Allergies verified and confirmed 5 rights. IV patency established. IV site checked: no pain, redness, or swelling. IV flushed thoroughly pre- and post-medication administration. --03:07 Sallie Garza R.N. 03:07 10/07/2016 Ativan (LORazepam) IVP 0.5 mg given over 1 minute(s) via site #1. Allergies verified, confirmed 5 rights and sedative warning given to the patient. IV patency established. IV site checked: no pain, redness, or swelling. IV flushed thoroughly pre- and post-medication administration. IVP given by RN. --03:07 Sallie Garza R.N. 03:10/07/2016 Toradol IVP 30 mg given over 1 minute(s) via site #1. Allergies verified and confirmed 5 rights. IV patency established. IV site checked: no pain, redness, or swelling. IV flushed thoroughly pre- and post-medication administration. IVP given by RN. --03:09 Sallie Garza R.N. 03:11 10/07/16. ( Patient given water, ok per Dr Robertson). --03:11 Sallie Garza R.N. ( Patient is Sinus rhythm on monitor). --03:14 Krystian Bello R.N. ( Friend of patient has arrived to the room, and is visiting with patient. They are conversing at bedside currently.). --03:58 Krystian Bello R.N. DISPOSITION / DISCHARGE 04:47 10/07/2016 Site #1 removed upon discharge. Bandaid applied. --04:47 Sallie Garza R.N. <<STRICKEN ENTRY-- 04:48 10/07/16. Departure time: 04:45 Oct 07 2016. Condition at departure: improved. No learning barriers present. Discharge instructions provided and reviewed with the patient. Reviewed medication(s) side effects, precautions, dosing and course information. Prescription(s) given to the patient. Patient verbalized understanding. Written instructions provided in Bengali. The patient was discharged by the physician. He was discharged home. He left the Emergency Department ambulatory and via taxi. Driving (Taxi). --04:48 Sallie Garza R.N. --END STRIKE>> Charted On Wrong Patient --04:48 Sallie Garza R.N. <<STRICKEN ENTRY-- 04:46 10/07/16. BP: 119/61 (large adult cuff) taken on the left arm. HR: 83. RR: 16. O2 saturation: 96% on room air. Temp: 98.2 F (oral). Pain level now: 07/15. --04:48 Sallie Garza R.N. --END STRIKE>> Charted on wrong patient. --04:48 Sallie Garza R.N. Departure time: 05:07. Condition at departure: stable. No learning barriers present. Treatments reviewed. Reviewed referrals for followup. Patient verbalized understanding. Written instructions provided in Bengali. The patient was discharged home and accompanied by glass processing worker. He left the Emergency Department ambulatory and via private vehicle. Loss Prevention Manager driving. --05:07 Krystian Bello R.N. 04:56 10/07/16. BP: 125/76 taken while sitting. HR: 81. RR: 16 (regular and unlabored). O2 saturation: 100%. Maharaj-Mensah pain scale: 0/10. --05:07 Krystian Bello R.N. Locked/Released at 10/17/2016 6:48 by Shabana Ziegler R.N.
--- NOTE | 2016-10-07 04:55 | ED ORDER SUMMARY ---
..... Patient: ADELINA JEREZ OrderSheet [facility] VisitID: [id number] [place] [address] 65y, M Registration Date/Time: 10/07/2016 ORDER SHEET Weight: 90.7 kg (stated) Allergies: Antidepressant, Iodine GENERAL ORDERS: Chest 1V Urgent (02:10/07/2016 Chrissy RODRIGUEZ) (Ack 2:34 LMuller) (2:47 [employer] ER Human Resources Leader) Communication Clerk (Continuous) (:10/07/2016 Chrissy RODRIGUEZ) (2:37 DDavis R.N.) Cardiac Panel Stat (:10/07/2016 Chrissy RODRIGUEZ) (Ack 2:34 LMuller) (2:37 DDavis R.N.) Oxygen (2 L/min) (NC) (:10/07/2016 Chrissy RODRIGUEZ) (2:37 DDavis R.N.) Pulse oximeter (02:10/07/2016 Chrissy RODRIGUEZ) (2:37 DDavis R.N.) EKG - ER Stat (:10/07/2016 Chrissy RODRIGUEZ) (Ack 2:34 LMuller) (2:47 [employer] ER Human Resources Leader) MEDICATION ORDERS: Aspirin PO 325 mg (Do not crush or chew, NOW) (02:10/07/2016 Chrissy RODRIGUEZ) (Ack 2:57 JSanders R.N.) (3:01 JSanders R.N.) IV FLUIDS: IV NS : initial bolus 1000 mL (1000 mL/hr), then none - (NOW) (02:10/07/2016 Chrissy RODRIGUEZ) (Ack 2:57 JSanders R.N.) (3:07 JSanders R.N.) Ativan IV 0.5 mg (HIGH ALERT MEDICATION, NOW) (02:10/07/2016 Chrissy RODRIGUEZ) (Ack 2:57 JSanders R.N.) (3:07 JSanders R.N.) Toradol IV 30 mg (NOW) (02:10/07/2016 Chrissy RODRIGUEZ) (Ack 2:57 JSanders R.N.) (3:09 JSanders R.N.) ORDER SHEET NOTES: [Electronically signed by Shabana Ziegler R.N. (06:48 10/17/2016)] [Electronically signed by Malia Robertson MD (12:25 10/20/2016)] [Electronically locked/signed by Shabana Ziegler R.N. (06:48 10/17/2016)]
--- NOTE | 2016-10-07 04:55 | ED NURSING NOTES ---
Clinical Report - Nurses [facility] [address] [place] [address] 10/07/2016 2:23 [id number] Triage time 02:28. Acuity: LEVEL 2. Chief Complaint: HEADACHE. Alert. HU[place]ON COMA SCORE: [place] Coma Scale: 15- eyes open spontaneously (4); best verbal response- oriented x 4 (5); best motor response- obeys commands (6). --02:33 Krystian Bello R.N. 02:26 10/07/16. BP: 112/52 taken on the right arm, while lying. HR: 104 (regular and tachycardic). RR: 16 (regular and unlabored). O2 saturation: 100%. Temp: 97.8 F (oral). Pain level now: 0/10. Additional comments: Sinus tach on monitor. --02:33 Krystian Bello R.N. Weight: 90.7 kg stated. Height/Length: 77 inches Per Patient. BMI: 23.7. --02:28 Krystian Bello R.N. Medications Atorvastatin Calcium Oral 80 mg. Hydrochlorothiazide Oral 50 mg. Hydroxyurea 500mg x2 daily. Lisinopril Oral 20 mg, daily. Ventolin HFA Inhalation (Aerosol Solution 108 (90 Base) mcg/act) 90MCG . --02:30 Krystian Bello R.N. Allergies Antidepressant.(hives) Iodine.(hives) --02:29 Krystian Bello R.N. History Arrived by EMS. Historian: patient. Unaccompanied. ( with shortness of breath). SOCIAL HX: Heavy tobacco smoker (cigarette)- less than 1 pack per day. Occasional alcohol use. History of occasional drug use: marijuana. NUTRITIONAL RISK ASSESSMENT: The nutritional risk assessment revealed no deficiencies. FUNCTIONAL ASSESSMENT: Functional assessment: no impairments noted. LEARNING NEEDS ASSESSMENT: The learning needs assessment revealed no barriers. FALL RISK ASSESSMENT: Fall risk assessment completed. Risk factors identified include patient history of fall. --02:33 Ace, Krystian, R.N. PROBLEMS: Degenerative Joint Disease. Primary (Essential) Thrombocytosis. TIA - Transient Ischemic Attack. Hives. Alcohol Intoxication. Cellulitis. Hypertension. --02:29 Krystian Bello R.N. Hypercholesterolemia. --02:30 Krystian Bello R.N. ADDITIONAL SURGERIES: Amputation. --02:30 Krystian Bello R.N. Interventions ID band on patient. To treatment room. --02:33 Krystian Bello R.N. PHYSICAL ASSESSMENT To room via stretcher. ( Pt states that he has had a headache for 2 days, and that [place] and he began to get dizzy. he states that his headache is gone now.). GENERAL / NEURO / PSYCH: Alert. Oriented X 4. Appears in pain and anxious. Speech within normal limits. HEENT: No facial asymmetry noted. RESPIRATORY: Respirations not labored. Abnormal breath sounds in the bases bilaterally. ( pt states having shortness of breath, speaks in full sentences, breathing deeply at a WNL rate). CVS: Capillary refill less than 2 seconds. SKIN: Skin is warm. Skin is slightly diaphoretic. --02:35 Krystian Bello R.N. HEENT: No facial asymmetry noted. --02:36 Krystian Bello R.N. SKIN: Skin rash. 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 --02:36 Krystian Bello R.N. NURSING PROGRESS NOTES Oxygen administered. ekg monitor, pulse oximeter and NIBP monitor placed on patient. Patient gowned. Head of bed elevated. Two patient identifiers checked. Call light placed in reach. Side rails up x 1. Bed placed in lowest position. Brakes of bed on. Patient ready for evaluation- chart flagged. Patient waiting for evaluation. --02:36 Krystian Bello R.N. EKG time: (0246). EKG was ordered, performed by a tech and shown to the ED physician. --02:48 Giovanny Antoine ER Oil Recovery Operator 02:42 10/07/2016 Site #1 started prior to arrival by EMS via IV in the left antecubital space with an 18g angiocath. Blood drawn: rainbow set. Labeled in the presence of the patient and sent to the lab. --03:07 Sallie Garza R.N. 03:01 10/07/2016 Aspirin PO Tablets 325 mg given. Allergies verified and confirmed 5 rights. --03:01 Sallie Garza R.N. 03:10/07/2016 Started bag #1 1000 mL IV Fluids IV NS (Saline); bolus of 1000 mL over 1 hour(s) via site #1 via IV pump. Allergies verified and confirmed 5 rights. IV patency established. IV site checked: no pain, redness, or swelling. IV flushed thoroughly pre- and post-medication administration. --03:07 Sallie Garza R.N. 03:07 10/07/2016 Ativan (LORazepam) IVP 0.5 mg given over 1 minute(s) via site #1. Allergies verified, confirmed 5 rights and sedative warning given to the patient. IV patency established. IV site checked: no pain, redness, or swelling. IV flushed thoroughly pre- and post-medication administration. IVP given by RN. --03:07 Sallie Garza R.N. 03:10/07/2016 Toradol IVP 30 mg given over 1 minute(s) via site #1. Allergies verified and confirmed 5 rights. IV patency established. IV site checked: no pain, redness, or swelling. IV flushed thoroughly pre- and post-medication administration. IVP given by RN. --03:09 Sallie Garza R.N. 03:11 10/07/16. ( Patient given water, ok per Dr Robertson). --03:11 Sallie Garza R.N. ( Patient is Sinus rhythm on monitor). --03:14 Krystian Bello R.N. ( Friend of patient has arrived to the room, and is visiting with patient. They are conversing at bedside currently.). --03:58 Krystian Bello R.N. DISPOSITION / DISCHARGE 04:47 10/07/2016 Site #1 removed upon discharge. Bandaid applied. --04:47 Sallie Garza R.N. <<STRICKEN ENTRY-- 04:48 10/07/16. Departure time: 04:45 Oct 07 2016. Condition at departure: improved. No learning barriers present. Discharge instructions provided and reviewed with the patient. Reviewed medication(s) side effects, precautions, dosing and course information. Prescription(s) given to the patient. Patient verbalized understanding. Written instructions provided in Danish. The patient was discharged by the physician. He was discharged home. He left the Emergency Department ambulatory and via taxi. Driving (Taxi). --04:48 Sallie Garza R.N. --END STRIKE>> Charted On Wrong Patient --04:48 Sallie Garza R.N. <<STRICKEN ENTRY-- 04:46 10/07/16. BP: 119/61 (large adult cuff) taken on the left arm. HR: 83. RR: 16. O2 saturation: 96% on room air. Temp: 98.2 F (oral). Pain level now: 07/15. --04:48 Sallie Garza R.N. --END STRIKE>> Charted on wrong patient. --04:48 Sallie Garza R.N. Departure time: 05:07. Condition at departure: stable. No learning barriers present. Treatments reviewed. Reviewed referrals for followup. Patient verbalized understanding. Written instructions provided in Danish. The patient was discharged home and accompanied by call worker. He left the Emergency Department ambulatory and via private vehicle. Electron Gun Inspector driving. --05:07 Krystian Bello R.N. 04:56 10/07/16. BP: 125/76 taken while sitting. HR: 81. RR: 16 (regular and unlabored). O2 saturation: 100%. [place] pain scale: 0/10. --05:07 Krystian Bello R.N. Locked/Released at 10/17/2016 6:48 by Shabana Ziegler R.N.
--- NOTE | 2016-10-07 06:51 | DIAGNOSTIC IMAGING REPORT ---
PROCEDURE: XR CHEST 1 VIEW INDICATION: SHORTNESS OF BREATH TECHNIQUE: Single view chest. 02:49 hours COMPARISON: 04/13/2010 FINDINGS: Heart size at the upper limits of normal. Prominent central pulmonary arteries. No central venous congestion. Normal aortic contour. Mildly hyperinflated lungs. Granulomatous change in the right lower lung lungs are otherwise clear. No effusion or pneumothorax. Intact osseous structures. IMPRESSION: 1. No acute process. 2. Findings of mild emphysema, chronic. 3. Mild cardiomegaly without CHF. 4. Granulomatous disease previously present.
--- NOTE | 2016-10-20 12:25 | ED MAR SUMMARY ---
..... Medication Administration Record [facility] [address] [place] [place] [address] Patient: ADELINA JEREZ Visit ID: [id number] 65y, M Weight: 90.7 kg Height/Length: 77 in BMI: 23.7 ALLERGIES: Antidepressant, Iodine Given 03:10/07/2016 Sallie Garza R.N. Medication Administered: ASPIRIN [PO], Dose: 325 mg Tablets PO. Medication Ordered: Aspirin PO 325 mg (Do not crush or chew, NOW). Given 03:10/07/2016 Sallie Garza R.N. Medication Administered: ATIVAN [IVP] (LORAZEPAM), Dose: 0.5 mg IVP over 1 minute(s), Site: #1 left AC. Medication Ordered: Ativan IV 0.5 mg (HIGH ALERT MEDICATION, NOW). Start 03:10/07/2016 Sallie Garza R.N. Medication Administered: IV NS (SALINE), Dose: IV Fluids, Bolus: 1000 mL over 1 hour(s), Dispensed: 1000 mL bag, Site: #1 left AC. Medication Ordered: IV NS : initial bolus 1000 mL (1000 mL/hr), then none - (NOW). Given 03:10/07/2016 Sallie Garza R.N. Medication Administered: TORADOL [IVP], Dose: 30 mg IVP over 1 minute(s), Site: #1 left AC. Medication Ordered: Toradol IV 30 mg (NOW).
--- NOTE | 2016-10-20 12:25 | ED MED RECONCILIATION SUMMARY ---
Patient: ADELINA JEREZ Medication Reconciliation Report [facility] VisitID: [id number] [address] [place] [address] 65y, M Registration Date/Time: 10/07/2016 Weight: 90.7 kg Height/Length: 77 in. BMI: 23.7 ALLERGIES: Antidepressant, Iodine The patient's Home Medications are listed below: CONTINUE TAKING THE FOLLOWING MEDICATIONS: Atorvastatin Calcium Oral 80 mg Hydrochlorothiazide Oral 50 mg Hydroxyurea 500mg x2 daily Lisinopril Oral 20 mg, daily Ventolin HFA Inhalation (108 (90 Base) mcg/act) 90MCG The source(s) of the original Home Medication information: Not obtained. The following Medications were given to the patient in the Emergency Department: Aspirin [PO] PO 325 mg, administered: 10/07/2016 3:01:00 AM IV NS IV Fluids bolus 1000 mL over 1 hour(s), administered: 10/07/2016 3:07:00 AM Ativan [IVP] IVP 0.5 mg, administered: 10/07/2016 3:07:00 AM Toradol [IVP] IVP 30 mg, administered: 10/07/2016 3:09:00 AM The following Medications were prescribed to the patient: None.
--- NOTE | 2016-10-20 12:25 | ED DISCHARGE INSTRUCTIONS ---
Patient: ADELINA JEREZ General Instructions [facility] VisitID: [id number] [place] [address] 65y, M Registration Date/Time: 10/07/2016 Acute exacerbation of COPD. Anxiety reaction. INSTRUCTIONS (Your labs, EKG and x-ray look good.). Warnings: SEDATIVE MEDICATION: You were given sedative medication during your visit. Do not drive or operate dangerous machinery for 6 hours. GENERAL WARNINGS: Return or contact your physician immediately if your condition worsens or changes unexpectedly, if not improving as expected, or if other problems arise. Your Current Medications: CONTINUE TAKING THE FOLLOWING MEDICATIONS: Atorvastatin Calcium Oral : 80 mg. Hydrochlorothiazide Oral : 50 mg. Hydroxyurea 500mg x2 daily*. Lisinopril Oral : 20 mg daily. Ventolin HFA Inhalation : Aerosol Solution 108 (90 Base) mcg/act, 90MCG. Follow-up: Follow up with your doctor as needed. Call for an appointment. Understanding of the discharge instructions verbalized by patient. ADDITIONAL INFORMATION COPD Flare Both emphysema and chronic bronchitis are forms of chronic obstructive pulmonary disease (COPD). It is most often caused by many years of smoking tobacco. Many things can make your lung disease suddenly get worse. These causes include the common cold, pneumonia, acute bronchitis, missing doses of your regular breathing medicines, or being around smoke, dust, or other air pollutants. A COPD flare may last 7 to 14 days. Your doctor may prescribe medicineto relax your airways and prevent wheezing. Your doctor may also prescribe antibiotics if he or she thinks you havea bacterial infection. Prednisone can helpease inflammation in a severe attack. Home care Here are things you can do at home: Drink lots of water or other fluids (at least 10 glasses a day) during an attack. This will loosen lung secretions and make it easier to breathe. If you have heart or kidney disease, check with your doctor before you drink extra amounts of fluids. Take prescribed medicine exactly at the times advised. If you have a hand-held inhaler or aerosol breathing medicine, don't use it more than once every 4 hours, unless your doctor tells you to. If you were givenan antibiotic or prednisone, take all of the medicine even if you are feeling better after a few days. Don't smoke. Avoid being aroundthe smoke of others. If you were given an inhaler, use it exactly as directed. If you need to use it more often than prescribed, your condition may be getting worse. Call your doctor. Follow-up care Follow up with your health care provider.If you are 65 or older or have chronic asthma or COPD, you should get a single dose of the pneumococcal vaccine and aflu shot each year. You may need a second dose of the pneumococcal vaccine if you had the first dose at a younger age. Your health care provider will let you know if you need a second dose. For all other people, the usual dose for the pneumococcal vaccine is 1 or 2 shots. Yourprovider can discuss this with you. When to seek medical care Get prompt medical attention ifany of these occur: Increased wheezing or shortness of breath Need to use your inhalers more often than usual without relief Fever of 100.4F(38C) or higher, or as directed by your health care provider Coughing up lots of dark-colored or bloody sputum (mucus) Chest pain with each breath You do not start to improve within 24 hours Stress Reaction Anxiety is the feeling we all get when we think something bad might happen. It is a normal response to stress and usually causes only a mild reaction. When anxiety becomes more severe, emotions may interfere with daily life. In some cases, you may not even be aware of what it is youre anxious about! During an anxiety reaction, you may feel like you are helpless, nervous, depressed or irritable. Your body may show signs of anxiety in many ways. You may experience dry mouth, shakiness, dizziness, weakness, trouble breathing, chest pressure, headache, nausea, diarrhea, tiredness, inability to sleep or sexual problems. Home Care: 1) Try to locate the sources of stress in your life. They may not be obvious! These may include: -- Daily hassles of life which pile up (traffic jams, missed appointments, car troubles, etc.) -- Major life changes, both good (new baby, job promotion) and bad (loss of job, loss of loved one) -- Overload: feeling that you have too many responsibilities and can't take care of all of them at once -- Feeling helpless, feeling that your problems are beyond what youre able to solve 2) Notice how your body reacts to stress. Learn to listen to your body signals. This will help you take action before the stress becomes severe. 3) When you can, do something about the source of your stress. (Avoid hassles, limit the amount of change that happens in your life at one time and take a break when you feel overloaded). 4) Unfortunately, many stressful situations cannot be avoided. It is necessary to learn HOW TO MANAGE STRESS better. There are many proven methods that will reduce your anxiety. These include simple things like exercise, good nutrition and adequate rest. Also, there are certain techniques that are helpful: relaxation and breathing exercises, visualization, biofeedback and meditation. For more information about this, consult your doctor or go to a local bookstore and review the many books and tapes available on this subject. Follow Up If you feel that your anxiety is not responding to self-help measures, contact your doctor or make an appointment with a counselor. Get Prompt Medical Attention if any of the following occur: -- Your symptoms get worse -- Chest pain or trouble breathing -- Severe headache not relieved by rest and mild pain reliever -- Rapid or irregular heartbeat, fainting You have been given the following additional information: COPD Flare Anxiety Reaction (Electronically signed by Malia Robertson MD 10/20/2016 12:25)
--- NOTE | 2016-10-20 12:25 | ED MAR SUMMARY ---
..... Medication Administration Record [facility] [address] [place] [address] Patient: ADELINA JEREZ Visit ID: [id number] 65y, M Weight: 90.7 kg Height/Length: 77 in BMI: 23.7 ALLERGIES: Antidepressant, Iodine Given 03:10/07/2016 Sallie Garza R.N. Medication Administered: ASPIRIN [PO], Dose: 325 mg Tablets PO. Medication Ordered: Aspirin PO 325 mg (Do not crush or chew, NOW). Given 03:10/07/2016 Sallie Garza R.N. Medication Administered: ATIVAN [IVP] (LORAZEPAM), Dose: 0.5 mg IVP over 1 minute(s), Site: #1 left AC. Medication Ordered: Ativan IV 0.5 mg (HIGH ALERT MEDICATION, NOW). Start 03:10/07/2016 Sallie Garza R.N. Medication Administered: IV NS (SALINE), Dose: IV Fluids, Bolus: 1000 mL over 1 hour(s), Dispensed: 1000 mL bag, Site: #1 left AC. Medication Ordered: IV NS : initial bolus 1000 mL (1000 mL/hr), then none - (NOW). Given 03:10/07/2016 Sallie Garza R.N. Medication Administered: TORADOL [IVP], Dose: 30 mg IVP over 1 minute(s), Site: #1 left AC. Medication Ordered: Toradol IV 30 mg (NOW).
--- NOTE | 2016-10-20 12:25 | ED MED RECONCILIATION SUMMARY ---
Patient: ADELINA JEREZ Medication Reconciliation Report [facility] VisitID: [id number] [address] [place] [address] 65y, M Registration Date/Time: 10/07/2016 Weight: 90.7 kg Height/Length: 77 in. BMI: 23.7 ALLERGIES: Antidepressant, Iodine The patient's Home Medications are listed below: CONTINUE TAKING THE FOLLOWING MEDICATIONS: Atorvastatin Calcium Oral 80 mg Hydrochlorothiazide Oral 50 mg Hydroxyurea 500mg x2 daily Lisinopril Oral 20 mg, daily Ventolin HFA Inhalation (108 (90 Base) mcg/act) 90MCG The source(s) of the original Home Medication information: Not obtained. The following Medications were given to the patient in the Emergency Department: Aspirin [PO] PO 325 mg, administered: 10/07/2016 3:01:00 AM IV NS IV Fluids bolus 1000 mL over 1 hour(s), administered: 10/07/2016 3:07:00 AM Ativan [IVP] IVP 0.5 mg, administered: 10/07/2016 3:07:00 AM Toradol [IVP] IVP 30 mg, administered: 10/07/2016 3:09:00 AM The following Medications were prescribed to the patient: None.
== END 2016-10-07 05:09 | disposition home or self-care (01) ==
LOC: ED SRH 02:21
DX: J44.1 Chronic obstructive pulmonary disease with (acute) exacerbation (principal); F41.9 Anxiety disorder, unspecified; I10 Essential (primary) hypertension; Z86.73 Personal history of transient ischemic attack (TIA), and cerebral infarction without residual deficits; Z79.899 Other long term (current) drug therapy; Z88.8 Allergy status to other drugs, medicaments and biological substances
CPT/HCPCS: 90100; 90616; 92610; 92720; 95059